=== PATIENT | female | born 1970 ===

== ENCOUNTER 2017-10-22 19:30 | Emergency (ER) | payer OTHER ==
[2017-10-22] MEDS ORDERED: Sodium Chloride 0.9% 1,000 ML IV STA (21:34)
[2017-10-22 22:03] LABS: BASO % 0.2 % (0.0-2.0); HEMOGLOBIN 11.7 g/dL (12.0-16.0); MEAN CELL VOLUME 92.6 fl (81.0-99.0); MEAN CORPUSCULAR HEMOGLOBIN 30.7 pg (27.0-31.0); MEAN CORPUSCULAR HGB CONC 33.1 g/dL (33.0-37.0); MEAN PLATELET VOLUME 7.5 fl (7.2-11.7); MONO % 7.9 % (0.0-10.0); NEUT # 10.7 K/uL (1.8-7.0); RBC 3.8 Mil/uL (3.80-5.20); RED CELL DISTRIBUTION WIDTH 13.3 % (11.5-14.5); WHITE BLOOD COUNT 12.7 K/uL (4.8-10.8)
[2017-10-22 22:13] LABS: SQUAMOUS EPITHIAL 2 /hpf (0-5); URINE BACTERIA RARE (<OCC); URINE BILIRUBIN NEGATIVE (NEGATIVE); URINE BLOOD NEGATIVE (NEGATIVE); URINE CLARITY SLIGHTY-CLOUDY (Clear); URINE COLOR YELLOW (YELLOW); URINE GLUCOSE (UA) NEG (Normal); URINE LEUKOCYTE ESTERASE MOD Leu/uL (Negative); URINE PROTEIN NEGATIVE (NEGATIVE); URINE UROBILINOGEN 0.2-1.0 mg/dL (0.2-1.0)
[2017-10-22 22:14] LABS: ALB/GLOB RATIO 1.1 (1.0-2.1); ALT/SGPT 30 U/L (9-52); AST/SGOT 26 U/L (14-36); BLOOD UREA NITROGEN 14 mg/dl (7-17); CALCIUM 8.8 mg/dL (8.4-10.2); GFR AFRICAN-AMERICAN > 60; GFR NON-AFRICAN AMERICAN > 60
--- NOTE | 2017-10-22 22:21 | ED PDOC ---
HPI: Abdomen Time Seen by Provider: 10/22/17 20:00 Chief Complaint (Nursing): Back Pain Chief Complaint (Provider): abdominal pain History Per: Patient History/Exam Limitations: no limitations Onset/Duration Of Symptoms: Days (x1) Current Symptoms Are (Timing): Still Present Location Of Pain/Discomfort: Suprapubic Associated Symptoms: Fever, Urinary Symptoms (dysuria and urgency). denies: Vomiting, Diarrhea Additional Complaint(s): Julio Ziegler is a 47 year old female, with a past medical history of back problems, who presents to the emergency department complaining of suprapubic pain onset for x1 day and fever for x2 days. Patient also reports dysuria and urgency. She denies any nausea, vomit, or diarrhea. No further medical complaints. PMD: Murray Padilla Past Medical History Reviewed: Historical Data, Nursing Documentation, Vital Signs Vital Signs: Last Vital Signs Temp 99.6 F 10/23/17 02:00 Pulse 88 10/23/17 02:00 Resp 18 10/23/17 02:00 BP 102/54 L 10/23/17 02:00 Pulse Ox 98 10/23/17 02:26 - Medical History PMH: Back Problems - Surgical History Surgical History: Cholecystectomy, - Family History Family History: States: No Known Family Hx - Social History Current smoker - smoking cessation education provided: No Alcohol: None Drugs: Denies - Home Medications Home Medications: Ambulatory Orders Medication Instructions Recorded Ciprofloxacin HCl [Cipro] 500 mg PO BID #20 tab 10/23/17 - Allergies Allergies/Adverse Reactions: Allergies Allergy/AdvReac Type Severity Reaction Status Date / Time morphine Allergy SHORTNESS Verified 10/22/17 20:05 OF BREATH Review of Systems ROS Statement: Except As Marked, All Systems Reviewed And Found Negative Constitutional: Positive for: Fever Gastrointestinal: Positive for: Abdominal Pain (suprapubic). Negative for: Nausea, Vomiting, Diarrhea Genitourinary Female: Positive for: Dysuria, Other (urgency) Physical Exam - Reviewed Nursing Documentation Reviewed: Yes Vital Signs Reviewed: Yes - Physical Exam Appears: Positive for: Non-toxic Head Exam: Positive for: ATRAUMATIC, NORMOCEPHALIC Skin: Positive for: Normal Color, Warm, Dry Eye Exam: Positive for: Normal appearance, EOMI, PERRL Neck: Positive for: Painless ROM, Supple Cardiovascular/Chest: Positive for: Regular Rate, Rhythm. Negative for: Murmur Respiratory: Positive for: Normal Breath Sounds. Negative for: Respiratory Distress Gastrointestinal/Abdominal: Positive for: Tenderness (mild suprapubic) Back: Negative for: L CVA Tenderness, R CVA Tenderness, Vertebral Tenderness Extremity: Positive for: Normal ROM (upper and lower extremities). Negative for : Deformity, Swelling Neurologic/Psych: Positive for: Alert, Oriented. Negative for: Motor/Sensory Deficits - Laboratory Results Result Diagrams: 10/22/17 21:51 10/22/17 21:51 - ECG O2 Sat by Pulse Oximetry: 98 (RA) Pulse Ox Interpretation: Normal Medical Decision Making Medical Decision Making: Time: 20:48 Initial Impression: UTI Initial Plan: --Abd & Pelvis w/o PO or IV contrast [CT] --Beta-HCG, Quantitative --CMP --CBC w/ differential --Toradol 30 mg IV --Sodium Chloride 1,000 ml IV 999 mls/hr --Zofran ODT 4 mg IV --Urine culture --Reevaluation 8046 CT FINDINGS: Lower thorax: There is an indeterminate left lower lobe pulmonary nodule measuring 6 x 4 x 4 mm. For low-risk patients, no follow-up is necessary. For high-risk patients ( smoking history or other known risk factors) an optional chest CT at 12 months could be performed. ABDOMEN: Liver: Normal. No mass. Gallbladder and bile ducts: There are postoperative changes of cholecystectomy. Pancreas: Normal. No ductal dilation. Spleen: Normal. No splenomegaly. Adrenals: Normal. No mass. Kidneys and ureters: There is mild left hydronephrosis and left hydroureter and asymmetric mild left perinephric inflammatory fat stranding but no visible obstructing calculus at this time. Cannot exclude a recently passed calculus that is no longer present. Stomach and bowel: Normal. No obstruction. No mucosal thickening. Appendix: The appendix is unremarkable and seen best on axial image 150 of series 3. PELVIS: Bladder: Unremarkable as visualized. Reproductive: Unremarkable as visualized. ABDOMEN and PELVIS: Intraperitoneal space: Normal. No free air. No significant fluid collection. Bones/joints: Likely benign bone island of the right ischial tuberosity. Soft tissues: Unremarkable. Vasculature: There are calcified phleboliths in the pelvis. Lymph nodes: Normal. No enlarged lymph nodes. IMPRESSION: 1. There is an indeterminate left lower lobe pulmonary nodule measuring 6 x 4 x 4 mm. For low-risk patients, no follow-up is necessary. For high-risk patients (smoking history or other known risk factors) an optional chest CT at 12 months could be performed. 2. There is mild left hydronephrosis and left hydroureter and asymmetric mild left perinephric inflammatory fat stranding but no visible obstructing calculus at this time. Cannot exclude a recently passed calculus that is no longer present. 0030 Upon re-evaluation patient is febrile. * Acetaminophen 650mg PO * Rocephin 1gm IVPB * Re-eval 0130 Upon re-evaluation patient is sleeping in the room. Pending repeat vitals. 0225 Vitals are stable. Patient notes improvement in symptoms. Reviewed CT report with patient. Patient is stable for discharge home and was advised to follow up with PCP in 1- 2 days. Dx: UTI v possible past kidney stone, pulmonary nodules that patient was made aware of ----- Scribe Attestation: Documented by Uziel Franklin and Cherie Cervantes, acting as a scribe for Dayanara Rubalcava MD. Provider Scribe Attestation: All medical record entries made by the Scribe were at my direction and personally dictated by me. I have reviewed the chart and agree that the record accurately reflects my personal performance of the history, physical exam, medical decision making, and the department course for this patient. I have also personally directed, reviewed, and agree with the discharge instructions and disposition. Disposition - Clinical Impression Clinical Impression: UTI (urinary tract infection) - Patient ED Disposition Is Patient to be Admitted: No Counseled Patient/Family Regarding: Studies Performed, Diagnosis, Need For Followup - Disposition Disposition: Routine/Home Disposition Time: 02:25 Condition: IMPROVED Additional Instructions: follow up with your primary doctor in 1-2 days return to the ED with any worsening or concerning symptoms JULIO SHARLENE LANDEN, thank you for letting us take care of you today. Your provider was Dayanara Rubalcava MD and you were treated for BACK PAIN. The emergency medical care you received today was directed at your acute symptoms. If you were prescribed any medication, please fill it and take as directed. It may take several days for your symptoms to resolve. Return to the Emergency Department if your symptoms worsen, do not improve, or if you have any other problems. Please contact your doctor or call one of the physicians/clinics you have been referred to that are listed on the Patient Visit Information form that is included in your discharge packet. Bring any paperwork you were given at discharge with you along with any medications you are taking to your follow up visit. Our treatment cannot replace ongoing medical care by a primary care provider outside of the emergency department. Thank you for allowing the [facility] team to be part of your care today. If you had an X-Ray or CT scan: A Radiologist will review the ED reading if any change in treatment is needed we will contact you. If you had a blood, urine, or wound culture: It will take several days for the results, if any change in treatment is needed we will contact you. If you had an STI test: It will take 48 hours for the results. Please call after 1 week if you have not heard back. Prescriptions: Ciprofloxacin HCl [Cipro] 500 mg PO BID #20 tab Instructions: Urinary Tract Infection, Adult (DC) Forms: [employer] (Lithuanian)
[2017-10-22 22:57] LABS: LYMPH % 11.8 % (20.0-40.0); NEUT % 80.1 % (50.0-75.0)
[2017-10-23] MEDS ORDERED: cefTRIAXone (Rocephin) 1 gm Inj ONE (01:20)
[2017-10-23 02:01] VITALS: BP 102/54; PULSE 88; RESP 18; TEMP 99.6
[2017-10-23 02:26] VITALS: O2SAT 98
--- NOTE | 2017-10-23 12:26 | CT ---
PROCEDURE: CT Abdomen and Pelvis without intravenous contrast HISTORY: Abdominal pain. Calculus disease suspected COMPARISON: None. TECHNIQUE: Unenhanced study. Neither oral nor intravenous contrast administered. Radiation dose: Total exam DLP = 442.26 mGy-cm. This CT exam was performed using one or more of the following dose reduction techniques: Automated exposure control, adjustment of the mA and/or kV according to patient size, and/or use of iterative reconstruction technique. FINDINGS: LOWER THORAX: Peripheral nodule lateral segment left lower lobe measuring 4 x 5 mm. LIVER: Unremarkable. No gross lesion or ductal dilatation. GALLBLADDER AND BILE DUCTS: Status post cholecystectomy. No abnormality is seen in the gallbladder fossa. PANCREAS: Unremarkable. No gross lesion or ductal dilatation. SPLEEN: Unremarkable. ADRENALS: Unremarkable. No mass. KIDNEYS AND URETERS: Bilateral hydroureter, hydronephrosis (mild and symmetrical). No evidence of upper tract, ureteral or urinary bladder calculi. VASCULATURE: Unremarkable. No aortic aneurysm. BOWEL: Unremarkable. No obstruction. No gross mural thickening. APPENDIX: Unremarkable. Normal appendix. PERITONEUM: Unremarkable. No free fluid. No free air. LYMPH NODES: Unremarkable. No enlarged lymph nodes. BLADDER: Unremarkable. REPRODUCTIVE: Unremarkable. BONES: No acute fracture. OTHER FINDINGS: None. IMPRESSION: Bilateral hydronephrosis, hydroureter without calculus disease, mass or other pathologic process. 5 x 6 mm noncalcified pulmonary nodule. For low risk patients no follow-up needed. For high risk patients optional CT at 12 months. Concordant results (preliminary interpretation) provided by [facility]. Procedure Completed: 22:52 Preliminary ([facility]) Report: Dictated and Authenticated: 23:38 Final Interpretation: 12:25 October 23, 2017.
== END 2017-10-23 02:36 | disposition home or self-care (01) ==
LOC: H.ER 19:30
DX: N39.0 Urinary tract infection, site not specified (principal)
CPT/HCPCS: 74176; 80053; 81003; 81025; 84702; 85025; 87086; 87181; 99283; J0696; J1885; J2405; J7030